=== PATIENT | female | born 1955 | race Caucasian/White ===

== ENCOUNTER → 2021-05-12 16:42 | Outpatient (CLI) | payer OTHER, SELFPAY ==
--- NOTE | 2021-05-12 16:46 | DI.RAD.S_ITS ---
PROCEDURE: XR HIP W PEL IF DONE LT 2V INDICATIONS: chronic left hip pain TECHNIQUE: AP pelvis with lateral view(s) of the left hip(s). COMPARISON: None. FINDINGS: Bones: No fractures or dislocations. Pelvic ring appears intact. No suspicious bony lesions. Mild joint narrowing with periarticular osteophyte formation. Degenerative disc and facet disease involves the inferior lumbar spine. Soft tissues: The visualized bowel gas pattern is normal. No suspicious soft tissue calcifications. IMPRESSION: Mild symmetric hip joint degeneration. Dictated by: Ronnie Herrera RR Interpreted: Robert Sandoval MD on 05/12/2021 at 17:03 Transcribed by: AGUSTÍN on 05/12/2021 at 17:03 Approved by: Robert Sandoval M.D. on 05/12/2021 at 17:14
== END ==
PROVIDERS: Referring Provider Family Medicine; Visit Provider Family Medicine
DX: M25.552 Pain in left hip (principal); M16.12 Unilateral primary osteoarthritis, left hip; G89.29 Other chronic pain
CPT/HCPCS: 73502

== ENCOUNTER → 2022-08-06 11:34 | Outpatient (CLI) | payer OTHER, SELFPAY ==
[2022-08-06 12:59] LABS: Add Manual Diff / Slide Review NO; Basophils Absolute Auto 0 /uL (0-100); Basophils Percent Auto 0.6 % (0-2); Eosinophils Absolute Auto 200 /uL (0-450); Eosinophils Percent Auto 4.7 % (2-4); Hematocrit 32.3 % (36-46); Hemoglobin 11.2 g/dL (12.0-16.0); Lymphocytes Absolute Auto 1500 /uL (1100-4500); Lymphocytes Percent Auto 33.8 % (25-40); Mean Corpuscular HGB Conc 34.6 % (30-36); Mean Corpuscular Hemoglobin 33.9 PG (26-34); Mean Corpuscular Volume 97.8 fL (80-100); Monocytes Absolute Auto 400 /uL (0-900); Monocytes Percent Auto 9.9 % (3-14); Neutrophils Absolute Auto 2200 /uL (1500-7000); Platelet Count 256 X10^3/uL (150-400); Red Blood Cell Count 3.31 X10^6/uL (4.0-5.2); Red Cell Distribution Width 12.4 % (11.6-14.8); White Blood Cell Count 4.3 X10^3/uL (4.5-11.0)
[2022-08-06 16:58] LABS: Alanine Aminotransferase 15 IU/L (<35); Albumin 3.5 g/dL (3.5-5.0); Albumin Globulin Ratio 0.5 (1.0-2.8); Alkaline Phosphatase 55 U/L (38-126); Aspartate Aminotransferase 15 IU/L (14-36); BUN Creatinine Ratio 20.8 (6-22); Bilirubin Total 0.2 mg/dL (0.2-1.3); Blood Urea Nitrogen 15 mg/dL (7-17); Calcium 8.3 mg/dL (8.4-10.2); Carbon Dioxide 27 mmol/L (22-32); Chloride 104 mmol/L (98-107); Cholesterol 120 mg/dL (140-199); Estimated Glomerular Filt Rate > 60 mL/min (>60); Globulin 6.4 g/dL (1.7-4.1); Glucose 100 mg/dL (80-110); HDL Cholesterol 37 mg/dL (40-60); HEMOLYSIS < 15 (0-50); LDL Cholesterol Calculated 69 mg/dL (<100); Potassium 4.2 mmol/L (3.4-5.1); Sodium 143 mmol/L (137-145); Total Protein 9.9 g/dL (6.3-8.2); Triglycerides 72 mg/dL (35-150)
== END ==
PROVIDERS: PCP Family Medicine; Referring Provider Family Medicine; Visit Provider Family Medicine
DX: R03.0 Elevated blood-pressure reading, without diagnosis of hypertension (principal); Z13.1 Encounter for screening for diabetes mellitus
CPT/HCPCS: 36415; 80053; 80061; 85025

== ENCOUNTER → 2023-01-19 07:57 | Outpatient (CLI) | payer OTHER, SELFPAY ==
[2023-01-19 08:38] LABS: Add Manual Diff / Slide Review NO; Basophils Absolute Auto 0 /uL (0-100); Basophils Percent Auto 0.5 % (0-2); Eosinophils Absolute Auto 300 /uL (0-450); Eosinophils Percent Auto 7.6 % (2-4); Hematocrit 30.7 % (36-46); Hemoglobin 10.7 g/dL (12.0-16.0); Lymphocytes Absolute Auto 1300 /uL (1100-4500); Lymphocytes Percent Auto 30.7 % (25-40); Mean Corpuscular HGB Conc 34.9 % (30-36); Mean Corpuscular Volume 97.2 fL (80-100); Monocytes Absolute Auto 200 /uL (0-900); Neutrophils Absolute Auto 2300 /uL (1500-7000); Neutrophils Percent Auto 56.2 % (50-75); Platelet Count 223 X10^3/uL (150-400); Red Blood Cell Count 3.15 X10^6/uL (4.0-5.2); White Blood Cell Count 4.2 X10^3/uL (4.5-11.0)
[2023-01-19 09:07] LABS: Alanine Aminotransferase 16 IU/L (<35); Albumin 3.7 g/dL (3.5-5.0); Albumin Globulin Ratio 0.5 (1.0-2.8); Alkaline Phosphatase 41 U/L (38-126); Aspartate Aminotransferase 14 IU/L (14-36); BUN Creatinine Ratio 32.8 (6-22); Bilirubin Total 0.5 mg/dL (0.2-1.3); Blood Urea Nitrogen 21 mg/dL (7-17); Calcium 8.7 mg/dL (8.4-10.2); Carbon Dioxide 27 mmol/L (22-32); Chloride 102 mmol/L (98-107); Estimated Glomerular Filt Rate > 60 mL/min (>60); Globulin 6.8 g/dL (1.7-4.1); Glucose 95 mg/dL (80-110); HEMOLYSIS < 15 (0-50); Potassium 4.5 mmol/L (3.4-5.1); Sodium 139 mmol/L (137-145); Total Protein 10.5 g/dL (6.3-8.2)
[2023-01-22 17:39] LABS: Albumin 3.9 g/dL (2.9-4.4); Alpha-1-Globulin 0.2 g/dL (0.0-0.4); Alpha-2-Globulin 0.6 g/dL (0.4-1.0); Gamma Globulin 0.3 g/dL (0.4-1.8); Globulin Total 6.4 g/dL (2.2-3.9); Protein, Total 10.3 g/dL (6.0-8.5)
== END ==
PROVIDERS: PCP Family Medicine; Referring Provider Family Medicine; Visit Provider Family Medicine
DX: D64.9 Anemia, unspecified (principal); F41.9 Anxiety disorder, unspecified; R03.0 Elevated blood-pressure reading, without diagnosis of hypertension; R77.9 Abnormality of plasma protein, unspecified
CPT/HCPCS: 36415; 80053; 84155; 84165; 85025

== ENCOUNTER → 2023-01-31 15:40 | Outpatient (CLI) | payer OTHER, SELFPAY ==
--- NOTE | 2023-01-31 15:41 | DI.RAD.S_ITS ---
PROCEDURE: XR BONE SURVEY INDICATIONS: multiple myeoloma TECHNIQUE: Multiple views obtained of various bony structures as described below. COMPARISON: None. FINDINGS: Skull (lateral): No suspicious bony lesions. No fractures. Thoracic spine (AP, lateral): No suspicious bony lesions. No acute vertebral body compression fractures. Multilevel degenerative change. Lumbar spine (AP, lateral): No suspicious bony lesions. No acute vertebral body compression fractures. Multilevel degenerative change. Pelvis (AP): No suspicious bony lesions. No fractures. Overlying soft tissues appear unremarkable. Mild symmetric hip joint degeneration Right and left humeri (AP): No suspicious bony lesions. No fractures. Overlying soft tissues appear unremarkable. Mild degenerative change. Right and left femurs (AP): No suspicious bony lesions. No fractures. Overlying soft tissues appear unremarkable. Mild degenerative change. IMPRESSION: No definitive lucent bony lesions or other suspicious bony abnormalities. Dictated by: Ronnie Herrera [facility] Interpreted: Roya Blankenship MD on 02/01/2023 at 14:55 Transcribed by: JONY on 02/01/2023 at 14:57 Approved by: Roya Blankenship M.D. on 02/01/2023 at 16:37
== END ==
PROVIDERS: PCP Family Medicine; Referring Provider Internal Medicine Hematology & Oncology; Visit Provider Internal Medicine Hematology & Oncology
DX: C90.00 Multiple myeloma not having achieved remission (principal)
CPT/HCPCS: 77075

== ENCOUNTER 2023-02-14 06:54 | Day surgery (SDC) | payer OTHER, SELFPAY ==
[2023-02-14] MEDS: LACTATED RINGERS 1,000 ML 100 ML IV (07:30)
[2023-02-14 07:57] VITALS: BP 139/78; PULSE 78; RESP 16; TEMP 36.7; O2SAT 100; BMI 26.6
[2023-02-14 07:59] LABS: Add Manual Diff / Slide Review NO; Basophils Absolute Auto 0 /uL (0-100); Basophils Percent Auto 0.6 % (0-2); Eosinophils Absolute Auto 400 /uL (0-450); Eosinophils Percent Auto 9.9 % (2-4); Hematocrit 32.1 % (36-46); Hemoglobin 10.9 g/dL (12.0-16.0); Lymphocytes Absolute Auto 1600 /uL (1100-4500); Mean Corpuscular HGB Conc 33.9 % (30-36); Mean Corpuscular Hemoglobin 33.6 PG (26-34); Mean Corpuscular Volume 99.4 fL (80-100); Monocytes Absolute Auto 200 /uL (0-900); Monocytes Percent Auto 5.6 % (3-14); Neutrophils Absolute Auto 1500 /uL (1500-7000); Neutrophils Percent Auto 40.9 % (50-75); Platelet Count 221 X10^3/uL (150-400); Red Blood Cell Count 3.23 X10^6/uL (4.0-5.2); Red Cell Distribution Width 13.3 % (11.6-14.8); White Blood Cell Count 3.7 X10^3/uL (4.5-11.0)
[2023-02-14 08:18] VITALS: BP 127/51; PULSE 59; RESP 12; TEMP 36.4; O2SAT 100
[2023-02-14 08:23] VITALS: BP 134/57; PULSE 57; RESP 10; O2SAT 100
[2023-02-14 08:28] VITALS: BP 132/53; PULSE 57; RESP 10; O2SAT 100
--- NOTE | 2023-02-14 08:29 | SUR.PHASEI ---
Received to PACU after MAC. Pt awake and alert. Report from PORTER Hopkins.
[2023-02-14 08:34] VITALS: BP 129/55; PULSE 57; RESP 12; TEMP 36.2; O2SAT 99
--- NOTE | 2023-02-14 08:34 | SUR.PHASEI ---
Hearing aides in place.
[2023-02-14 08:37] VITALS: BP 139/51; PULSE 57; RESP 12; TEMP 36.2; O2SAT 98
== END 2023-02-14 08:51 | disposition home or self-care (01) ==
PROVIDERS: PCP Family Medicine; Referring Provider Internal Medicine Hematology & Oncology; Visit Provider Internal Medicine Hematology & Oncology
DX: C90.00 Multiple myeloma not having achieved remission (principal)
CPT/HCPCS: 36415; 38222; 85025; 99000; J2704

== ENCOUNTER → 2023-03-07 16:33 | Outpatient (CLI) | payer OTHER, SELFPAY ==
--- NOTE | 2023-03-07 16:34 | DI.MRI.S_ITS ---
PROCEDURE: MR BONE MARROW INDICATIONS: multiple myeloma TECHNIQUE: Noncontrast sagittal T1 spin echo and STIR through the spine; coronal T1 spin echo and STIR through the bony thorax, coronal T1 spin echo and STIR through the bony pelvis and femurs. COMPARISON: [facility], CR, XR BONE SURVEY, 01/31/2023, 15:40. FINDINGS: Image quality: Excellent. Spine: Grade 1 anterolisthesis of T12 on L1. No vertebral body compression fractures. Mild cellular marrow throughout the visualized osseous structures, which remains hyperintense to muscle on T1-weighted images without a definite focal marrow replacing mass. Multilevel degenerative changes in the cervical and lumbar spine without high-grade spinal canal narrowing. The visualized spinal cord demonstrates normal intramedullary signal. The conus is in expected position. No epidural or paravertebral soft tissue masses. Pelvis and hips: Mild cellular marrow throughout the visualized osseous structures, which remains hyperintense to muscle on T1-weighted images without a definite focal marrow replacing mass. No pelvic ring or sacral pathologic or insufficiency fractures. Physiologic amounts of hip joint fluid are present. No joint degeneration or soft tissue bursal fluid collections. Soft tissues: No free pelvic fluid. No pathologic pelvic or inguinal adenopathy. Visualized bowel loops appear normal in caliber. Limited images through the genitourinary tract demonstrate no abnormalities. The muscles demonstrate normal overall bulk and internal signal. Bilateral mucous retention cysts in the maxillary sinuses. Nonspecific subcentimeter [id number] thyroid nodule does not require dedicated imaging follow-up. IMPRESSION: Mild cellular marrow is seen throughout the visualized osseous structures, which remains hyperintense to skeletal muscle. Findings are nonspecific and may be related to red marrow reconversion, especially in the setting of anemia. No focal marrow replacing mass. Approved by: Ho Gutierrez M.D. on 03/08/2023 at 12:29
== END ==
PROVIDERS: PCP Family Medicine; Referring Provider Internal Medicine Hematology & Oncology; Visit Provider Internal Medicine Hematology & Oncology
DX: C90.00 Multiple myeloma not having achieved remission (principal)
CPT/HCPCS: 77084

== ENCOUNTER → 2024-02-18 14:34 | Outpatient (CLI) | payer OTHER, MEDICARE, SELFPAY ==
--- NOTE | 2024-02-18 14:36 | DI.RAD.S_ITS ---
PROCEDURE: XR ANKLE LT MIN 3V INDICATIONS: Left ankle swelling TECHNIQUE: 3 views of the ankle were acquired. COMPARISON: None. FINDINGS: Bones: No fractures or dislocations. Chronic appearing fracture fragment at the tip of the medial malleolus. Ankle mortise is normally aligned. No suspicious bony lesions. Soft tissues: No tibiotalar joint effusion. Achilles tendon appears normal. IMPRESSION: No acute bony abnormality or significant effusion. Dictated by: Paulino Wagoner M.D. on 02/18/2024 at 15:30 Approved by: Paulino Wagoner M.D. on 02/18/2024 at 15:31
--- NOTE | 2024-02-18 14:36 | DI.RAD.S_ITS ---
PROCEDURE: XR SHOULDER RT MIN 2V INDICATIONS: Chronic right shoulder pain TECHNIQUE: 3 views of the shoulder were acquired. COMPARISON: None. FINDINGS: Bones: No fractures or dislocations. Moderate acromioclavicular and mild glenohumeral joint degeneration. No suspicious bony lesions. Visualized ribs appear intact. Soft tissues: No suspicious soft tissue calcifications. IMPRESSION: No acute osseous abnormalities. Moderate acromioclavicular and mild glenohumeral joint degeneration. Dictated by: Paulino Wagoner M.D. on 02/18/2024 at 15:29 Approved by: Paulino Wagoner M.D. on 02/18/2024 at 15:30
== END ==
PROVIDERS: PCP Family Medicine; Referring Provider Family Medicine; Visit Provider Family Medicine
DX: M19.011 Primary osteoarthritis, right shoulder (principal); M25.511 Pain in right shoulder; M25.472 Effusion, left ankle; G89.29 Other chronic pain
CPT/HCPCS: 73030; 73610

== ENCOUNTER → 2024-04-09 15:21 | Outpatient (CLI) | payer OTHER, MEDICARE, SELFPAY ==
--- NOTE | 2024-04-09 15:23 | DI.RAD.S_ITS ---
PROCEDURE: XR HIP W PEL IF DONE LT 2V INDICATIONS: hip pain 1.5 weeks TECHNIQUE: AP pelvis with lateral view(s) of the left hip(s). COMPARISON: [facility], , XR HIP W PEL IF DONE LT 2V, 05/12/2021, 16:48. FINDINGS: Bones: No fractures or dislocations. Pelvic ring appears intact. No suspicious bony lesions. Soft tissues: The visualized bowel gas pattern is normal. No suspicious soft tissue calcifications. IMPRESSION: No acute bony abnormality. Dictated by: Eleazar Carreno M.D. on 04/09/2024 at 16:40 Approved by: Robert Sandoval M.D. on 04/20/2024 at 16:46
== END ==
PROVIDERS: PCP Family Medicine; Referring Provider Physician Assistant; Visit Provider Physician Assistant
DX: C90.00 Multiple myeloma not having achieved remission (principal); M25.552 Pain in left hip
CPT/HCPCS: 73502

== ENCOUNTER → 2024-05-29 08:45 | Outpatient (CLI) | payer OTHER, MEDICARE, SELFPAY ==
--- NOTE | 2024-05-29 | DI.MRI.S_ITS ---
PROCEDURE: MR HIP LT WO CON INDICATIONS: LEFT HIP PAIN TECHNIQUE: Noncontrast coronal T1 spin echo and STIR through the bony pelvis. Coronal and axial T2 fast spin echo with fat saturation, sagittal T1 spin echo, and oblique axial T2 fast spin echo with fat saturation through the hip. COMPARISON: [facility], CR, XR HIP W PEL IF DONE LT 2V, 04/09/2024, 15:24. FINDINGS: Image quality: Excellent. Bones and joints: Fibrovascular end plate change at the lower lumbar spine. The sacrum is intact. The right and the left sacroiliac joints are unremarkable. No acute fracture or dislocation of either hip. Mild subchondral cystic changes at the anterior head and neck junction of the left femur, favoring degenerative. Tendons and ligaments: The left iliopsoas, and adductor tendon are unremarkable. The left hamstring tendon is unremarkable. Mild peritendinitis of the left gluteal minimus with low-grade tear. Partial-thickness tear of the left gluteal medius, at the greater trochanteric insertion. Trace greater trochanteric bursitis. Mild peritendinitis of the right gluteal medius, incompletely evaluated. Labrum and cartilage: Superior labral tear. No focal chondral defect. Soft tissues: Status post hysterectomy. IMPRESSION: 1. Low-grade tear of the left gluteal minimus, and partial-thickness tear of the left gluteal medius, at the greater trochanteric insertion. 2. Mild right gluteus medius peritendinitis. Dictated by: Lizzie Cruz M.D. on 05/29/2024 at 10:45 Approved by: Lizzie Cruz M.D. on 05/29/2024 at 10:52
== END ==
LOC: MRI 08:46
PROVIDERS: PCP Family Medicine; Referring Provider Orthopaedic Surgery; Visit Provider Orthopaedic Surgery
DX: S76.012A Strain of muscle, fascia and tendon of left hip, initial encounter (principal); M76.02 Gluteal tendinitis, left hip; M25.552 Pain in left hip
CPT/HCPCS: 73721

== ENCOUNTER → 2024-05-29 08:47 | Outpatient (CLI) | payer OTHER, MEDICARE, SELFPAY ==
--- NOTE | 2024-05-29 | DI.MG.S_ITS ---
BILATERAL DIGITAL SCREENING MAMMOGRAM 3D/2D WITH CAD: 05/29/2024 CLINICAL: Routine screening. Baseline exam. No prior exams were available for comparison. There are scattered areas of fibroglandular density (category b / 25%-50% glandular tissue). Current study was also evaluated with a Computer Aided Detection (CAD) system. No significant masses, calcifications, or other findings are seen in either breast. IMPRESSION: NEGATIVE There is no mammographic evidence of malignancy. A 1 year screening mammogram is recommended. Based on the Tyrer Cuzick model (a risk assessment model) the patient's lifetime risk is 4.2% and her 10 year risk is 2.2%. According to the ACR, ACS, and NCCN guidelines, an annual breast MRI exam along with mammogram is recommended if the patient's lifetime risk is 20% or greater. This exam was interpreted at Station ID: [id number]. NOTE: For mammograms, a report in lay terms will be sent to the patient. Approximately 15% of breast malignancies will not be visualized mammographically. In the management of a palpable breast mass, a negative mammogram must not discourage biopsy of a clinically suspicious lesion. Electronically Signed By: Giuliana Brennan M.D., Ph.D. deirdre/[email or web address]:05/29/2024 10:01:33 letter sent: Normal Exam ACR BI-RADS Category 1: Negative [id number]
== END ==
LOC: MAMMO 08:47
PROVIDERS: PCP Family Medicine; Referring Provider Family Medicine; Visit Provider Family Medicine
DX: Z12.31 Encounter for screening mammogram for malignant neoplasm of breast (principal)
CPT/HCPCS: 77063; 77067

== ENCOUNTER 2024-07-01 10:15 | Emergency (ER) | payer OTHER, MEDICARE, SELFPAY ==
[2024-07-01 10:16] VITALS: BP 123/73; PULSE 92; RESP 17; TEMP 36.9; O2SAT 93; BMI 29.5
--- NOTE | 2024-07-01 10:16 | ED.EXTPRO ---
HPI - Extremity Problem General Chief complaint: Back Pain/Injury Stated complaint: muscle spasm Time Seen by Provider: 07/01/24 10:16 History of Present Illness HPI Narrative: Patient is a 68-year-old female with a history of multiple myeloma and chronic left hip pain presents to the emergency department from home for evaluation left-sided low back pain. States that a few days ago she woke up coughing and noticed it is spasming to her low back. Onto the left side denies any saddle paresthesias denies any bowel or urinary incontinence or retention denies any numbness weakness tingling to the lower extremities able to stand bear weight ambulate unassisted. She states that it gets worse whenever she coughs. States that she has been trying to ride it out due to persistent symptoms decided come into the ED for further evaluation treatment. Related Data Home Medications Medication Instructions Recorded Confirmed lorazepam 0.5 mg tablet 0.5 mg PO DAILY PRN Anxiety 01/31/23 04/09/24 dexamethasone 20 mg tablet 20 mg PO .once a week 12/06/23 04/09/24 lenalidomide 15 mg capsule 15 mg PO DAILY 12/06/23 04/09/24 (Revlimid) valacyclovir 500 mg tablet 500 mg PO BID 12/06/23 04/09/24 (Valtrex) daratumumab [Darzalex] IV 02/17/24 04/09/24 zoledronic acid [Zometa] IV 02/17/24 04/09/24 Previous Rx's Medication Instructions Recorded diazepam 5 mg tablet (Valium) 5 mg PO BEDTIME PRN muscle spasm 5 07/01/24 days #5 tabs naproxen 500 mg tablet (Naprosyn) 500 mg PO BID PRN pain 7 days #14 07/01/24 tabs prednisone 20 mg tablet 40 mg (2 x 20 mg) PO DAILY 5 days 07/01/24 #10 tabs Allergies Allergy/AdvReac Type Severity Reaction Status Date / Time No Known Drug Allergies Allergy Verified 07/01/24 10:21 Review of Systems Review of Systems Narrative: General: Denies fever, chills, weight loss HEENT: Denies headache, eye drainage, eye irritation, head trauma, sore throat, voice change Cardiovascular: Denies any chest pain, palpitations, shortness of breath, tachycardia Respiratory: Denies any shortness of breath, cough, wheeze, stridor GI/: Denies any abdominal pain, nausea, vomiting, diarrhea, bright red blood per rectum, melanotic stools, urinary frequency, urinary retention, dysuria, hematuria MSK: Denies any joint pain, positive left-sided low back pain Skin: Denies any rashes, lesions, discoloration Neuro: Denies any headache, lightheadedness, dizziness, fainting, weakness Psych: Denies SI/HI Patient History Medical History (Updated 07/01/24 @ 12:21 by Ten Naik DO) Multiple myeloma Somatic dysfunction of lower extremity Acute pain of right knee Stiffness of right knee Chronic left hip pain Cataracts, both eyes Hearing loss of both ears Anxiety Elevated blood-pressure reading without diagnosis of hypertension Surgical History Anesthesia History of toe surgery Status post cholecystectomy Status post knee surgery Status post hysterectomy (~1985) History of tonsillectomy (~1965) Family History Brother Age: 68 Heart disease Diabetes mellitus Brother Age: 60 Diabetes mellitus Father Age: 92 Diabetes mellitus Essential hypertension High cholesterol Dementia Prostate cancer Mother Cancer Social History household members: spouse Smoking Status: Former smoker alcohol intake: current substance use type: does not use Smoking Status: Former smoker Substance Use Type: marijuana Exam Narrative Exam Narrative: General: Cooperative, comfortable, well-developed, not in acute distress HEENT: Normocephalic, atraumatic, PERRLA, normal sclera, eyelids normal, Neck: Active full range of motion, atraumatic Chest: Normal to inspection, negative crepitus, no overlying erythema ecchymosis Respiratory: Normal respiratory effort, not in acute respiratory distress, clear to auscultation bilaterally negative cough, wheeze, tachypnea, rhonchi, rales Cardiology: Regular rate rhythm negative gallop, murmur, rubs GI/: Normal to inspection, soft, nonrigid, no tenderness to palpation, exam deferred MSK: Full range of active range of motion of all 4 extremities, atraumatic, there is no tenderness to palpation of the thoracic and lumbar spine, there is tenderness to palpation over the paraspinal muscles on the left, no overlying erythema ecchymosis or lesions. She is able to stand bear weight ambulate unassisted here in the emergency department. Skin: No rashes lesions noted Neuro: Alert awake oriented x3, moves all 4 extremities spontaneously, cranial nerves intact, able to answer all questions appropriately follows commands appropriately Psych: Cooperative, negative suicidal or homicidal ideations Initial Vital Signs Initial Vital Signs: Vital Signs Temperature 98.4 F 07/01/24 10:16 Pulse Rate 92 H 07/01/24 10:16 Respiratory Rate 17 07/01/24 10:16 Blood Pressure 123/73 07/01/24 10:16 Pulse Oximetry 93 07/01/24 10:16 Oxygen Delivery Method Room Air 07/01/24 10:16 Course Orders Ordered: ED Orders 07/01/24 10:20 XR lumbar spine 2-3V Stat Discontinued Medications Diazepam (Diazepam 2 Mg Tablet) 2 mg PO NOW ONE Stop: 07/01/24 10:23 Last Admin: 07/01/24 10:29 Dose: 2 mg Documented By: ARNALDO Ketorolac Tromethamine (Ketorolac 30 Mg/Ml Vial) 15 mg IM NOW ONE Stop: 07/01/24 10:22 Last Admin: 07/01/24 10:28 Dose: 15 mg Documented By: ARNALDO Prednisone (Prednisone 20 Mg Tablet) 60 mg PO NOW ONE Stop: 07/01/24 10:22 Last Admin: 07/01/24 10:29 Dose: 60 mg Documented By: ARNALDO Vital Signs Vital signs: Vital Signs - 8 hr 07/01/24 10:16 07/01/24 10:18 07/01/24 10:19 Temperature 98.4 F Pulse Rate 92 H 90 Respiratory Rate 17 Blood Pressure 123/73 Pulse Oximetry 93 97 92 Oxygen Delivery Method Room Air 07/01/24 10:19 Temperature Pulse Rate Respiratory Rate Blood Pressure 123/73 Pulse Oximetry Oxygen Delivery Method MDM - Extremity (Nontraumatic) Imaging Data X-ray lumbar: Radiologist's Impression: [address] [address] XRay Report Signed Patient: Marly Lara MR#: [id number] : 1955 Acct:[id number] Age/Sex: 68 / F Date of Service: 07/01/24 Loc: ED Accession Number: [id number] Procedure: XR lumbar spine 2-3V Ordering Provider: Ten Naik D.O. PROCEDURE: XR LUMBAR SPINE 2-3V INDICATIONS: low back pain TECHNIQUE: 3 views of the lumbar spine were acquired. COMPARISON: None. FINDINGS: Bones: 5 [id number] vertebrae are present. Moderate levo scoliotic curvature centered at L2. Multilevel degenerative disc space loss and facet arthropathy. Suspect lower lumbar canal stenosis. No vertebral body compression fractures. No suspicious bony lesions. Soft tissues: Overlying bowel gas pattern is normal. Extensive aortoiliac calcifications. The pattern of common iliac calcifications suggest probable bilateral hemodynamically significant common iliac artery stenosis. There is also suggestion of a probable hemodynamically significant distal aortic stenosis. IMPRESSION: 1. Moderate levo scoliotic curvature. 2. Multilevel degenerative disc disease and facet arthropathy. Suspect canal stenosis. 3. No acute bony abnormality. 4. Suspect probable hemodynamically significant distal aortic and bilateral common iliac artery stenotic disease. [facility] Narrative Medical decision making narrative: Patient is a 68-year-old female history of multiple myeloma comes in complaining of left paraspinal muscle pain spasming after waking up in the past few days. She denies any cauda equina symptoms. Physical exam is consistent with a muscle spasm with tenderness to palpation and reproducible symptoms to the left, there is no overlying erythema ecchymosis or abnormalities on the skin. She is able to stand bear weight ambulate unassisted. After administration medication here patient with significant improvement of pain. X-ray without any acute findings, she was instructed follow up with Orthopedic surgery in outpatient setting as well as PCP and agrees to being discharged home with outpatient follow up Discharge Plan Departure Patient Disposition: Home Clinical Impression: Acute lumbar myofascial strain Activity Restrictions/Additional Instructions: Please follow up with the primary care Please read the discharge instructions sheet carefully and bring all papers to all doctor follow-up visits, as it may contain information that your doctor may want to see. Disease processes change and evolve, if your symptoms worsen or if you develop any new symptoms that are concerning to you please return for evaluation. Your evaluation today does not show any evidence of any life-threatening/serious illnesses requiring admission to the hospital or surgery. Please follow-up with your doctor for re-evaluation in approximately 1 day. Seek immediate medical attention for any worrisome symptoms. Prescriptions: New prednisone 20 mg tablet 40 mg PO DAILY 5 Days Qty: 10 0RF diazepam [Valium] 5 mg tablet 5 mg PO BEDTIME PRN (Reason: muscle spasm) 5 Days Qty: 5 0RF naproxen [Naprosyn] 500 mg tablet 500 mg PO BID PRN (Reason: pain) 7 Days Qty: 14 0RF No Action lenalidomide [Revlimid] 15 mg capsule 15 mg PO DAILY Rx Instructions: swallow whole with glass of water; do not open, crush, chew , break, or dissolve dexamethasone 20 mg tablet 20 mg PO .once a week valacyclovir [Valtrex] 500 mg tablet 500 mg PO BID zoledronic acid [Zometa] IV daratumumab [Darzalex] IV lorazepam 0.5 mg Tablet 0.5 mg PO DAILY PRN (Reason: Anxiety) Referrals: Percy Gagnon MD [Primary Care Provider] - Stand Alone Forms: Patient Portal/API
[2024-07-01 10:18] VITALS: O2SAT 97
[2024-07-01 10:19] VITALS: BP 123/73; PULSE 90; O2SAT 92
--- NOTE | 2024-07-01 10:20 | DI.RAD.S_ITS ---
PROCEDURE: XR LUMBAR SPINE 2-3V INDICATIONS: low back pain TECHNIQUE: 3 views of the lumbar spine were acquired. COMPARISON: None. FINDINGS: Bones: 5 [id number] vertebrae are present. Moderate levo scoliotic curvature centered at L2. Multilevel degenerative disc space loss and facet arthropathy. Suspect lower lumbar canal stenosis. No vertebral body compression fractures. No suspicious bony lesions. Soft tissues: Overlying bowel gas pattern is normal. Extensive aortoiliac calcifications. The pattern of common iliac calcifications suggest probable bilateral hemodynamically significant common iliac artery stenosis. There is also suggestion of a probable hemodynamically significant distal aortic stenosis. IMPRESSION: 1. Moderate levo scoliotic curvature. 2. Multilevel degenerative disc disease and facet arthropathy. Suspect canal stenosis. 3. No acute bony abnormality. 4. Suspect probable hemodynamically significant distal aortic and bilateral common iliac artery stenotic disease. Dictated by: Christiano Wade M.D. on 07/01/2024 at 12:01 Approved by: Christiano Wade M.D. on 07/01/2024 at 12:03
[2024-07-01] MEDS: KETOROLAC 30 MG/ML VIAL 15 MG IM (10:28)
[2024-07-01] MEDS: predniSONE 20 MG TABLET 60 MG PO (10:29)
[2024-07-01] MEDS: diazePAM 2 MG TABLET PO (10:29)
--- NOTE | 2024-07-01 12:39 | PC.NURSE ---
Patient states that she is unable to take naproxen due to multiple myloma. She asked this RN if provider wanted her to take Tylenol instead. This RN asked provider and provider confirmed yes patient could take Tylenol as written on the bottle. This RN took the prescription written for the naproxen and it is shredded.
[2024-07-01 12:43] VITALS: BP 121/67; PULSE 77; RESP 18; TEMP 36.7; O2SAT 99
== END 2024-07-01 12:40 | disposition home or self-care (01) ==
PROVIDERS: Emergency Provider Student in an Organized Health Care Education/Training Program; PCP Family Medicine
DX: S39.012A Strain of muscle, fascia and tendon of lower back, initial encounter (principal); M62.830 Muscle spasm of back
CPT/HCPCS: 72100; 96372; 99283; J1885

== ENCOUNTER → 2024-07-14 10:55 | Outpatient (CLI) | payer OTHER, SELFPAY ==
--- NOTE | 2024-07-14 10:58 | DI.US.S_ITS ---
PROCEDURE: US PERIPH VENOUS LOW EXTREM RT INDICATIONS: RIGHT LEG PAIN AND SWELLING TECHNIQUE: Real-time imaging, as well as color and pulse Doppler interrogation, were performed of the lower extremity deep veins from the inguinal ligament to the popliteal fossa, with documentation of the visualized calf veins. COMPARISON: None. FINDINGS: Right lower extremity deep venous thrombosis can be seen, with thrombus seen within the common femoral vein, the femoral vein, and the popliteal vein. IMPRESSION: Extensive right lower extremity deep venous thrombosis can be seen. Note: Concordant preliminary findings given by the client care specialist upon the completion of the examination to the ordering office. Dictated by: Caleb Hernandez M.D. on 07/14/2024 at 12:27 Approved by: Caleb Hernandez M.D. on 07/14/2024 at 12:27
== END ==
PROVIDERS: PCP Family Medicine; Referring Provider Family Medicine; Visit Provider Family Medicine
DX: C90.00 Multiple myeloma not having achieved remission (principal); I82.431 Acute embolism and thrombosis of right popliteal vein; I82.411 Acute embolism and thrombosis of right femoral vein; M79.89 Other specified soft tissue disorders; M79.661 Pain in right lower leg
CPT/HCPCS: 93971

== ENCOUNTER 2024-10-27 14:25 | Outpatient (RCR) | payer OTHER, SELFPAY ==
--- NOTE | 2024-10-27 18:08 | PT.OIE ---
Current Diagnoses Trochanteric bursitis, left hip (10/27/24) Past Medical History (Last Updated 01/24/23 @ 07:57 by Percy Gagnon MD) Acute pain of right knee Anxiety Cataracts, both eyes Chronic left hip pain Elevated blood-pressure reading without diagnosis of hypertension Hearing loss of both ears Multiple myeloma Somatic dysfunction of lower extremity Stiffness of right knee Past Surgical History (Last Reviewed 07/25/22 @ 08:35 by MIGUEL Santiago) Anesthesia History of toe surgery History of tonsillectomy (~1965) Status post cholecystectomy Status post hysterectomy (~1985) Status post knee surgery Visit Care Team Role Provider Type Percy Gagnon MD Family Provider Physician Primary Care Provider Specialty: Family Practice Address: [address] [place] [address], [id number] Email: [email or web address] Wharton MD Attending Provider Physician Referring Provider Specialty: Orthopedics Orthopedic Surgery Address: [address] [place] [address], [address] Email: [email or web address] Physical Therapy Initial Evaluation PT-OP-A Visit Information Start: 10/21/24 17:39 Freq: Status: Active Protocol: Document 10/27/24 14:14 [facility] (Rec: 10/27/24 15:22 [facility] [id number]) Out-Patient Physical Therapy Visit Information Visit Information Visit Type Initial Evaluation Visit Start Time 14:31 Visit Number 1 Number of PROFESSIONAL BASS FISHERMAN Visits 0 Precautions Precautions multiple mylenoma -very gentle -no more than grade 1-2 mobs at hip, no lumbar jt mobs PT-OP-B Current Condition Start: 10/21/24 17:39 Freq: Status: Active Protocol: Document 10/27/24 14:14 [facility] (Rec: 10/27/24 15:22 [facility] [id number]) Current Condition History of Current Condition Current Complaints L lat hip pain History of Current Condition Pt was told she has bursitis and arthritis by orthopedic. No injury but just gradual onset. She had a flare up where she couldn't WB on LLE. THats why she went to ortho. FInished chemo for multiple myeloma and is on meds for that. She has been dx for 2 years. Has not had treatment for the hip. L ankle is still messd up but still has a cyst and did do PT for it. Does have R shoulder pain w/OA but avoiding TSA at this time and is just careful. Last flare up was Nov. Prior Treatments and Tests MRI 05/29/23-IMPRESSION: 1. Low-grade tear of the left gluteal minimus, and partial- thickness tear of the left gluteal medius, at the greater trochanteric insertion. 2. Mild right gluteus medius peritendinitis. Xray 04/08-IMPRESSION: No acute bony abnormality. lumbar xray-IMPRESSION: 1. Moderate levo scoliotic curvature. 2. Multilevel degenerative disc disease and facet arthropathy. Suspect canal stenosis. 3. No acute bony abnormality. 4. Suspect probable hemodynamically significant distal aortic and bilateral common iliac artery stenotic disease. Treatment Goals Patient/Caregiver Goals Be able to walk up the stairs normally consistantly, move out of positions w/less pain, be able to get figure 4 to cut toe nails PT-OP-C Subjective Start: 10/21/24 17:39 Freq: Status: Active Protocol: Document 10/27/24 14:14 [facility] (Rec: 10/27/24 15:22 [facility] [id number]) OP-PT Pain Assessment Location L hip Pain Location Details lat Description With Movement Frequency Intermittent Pain Aggravating Factors Stair Climbing Other Pain Aggravating Factors figure 4 position, laying on L side, sit to stand ( especially if sit long) Other Pain Alleviating Factors get moving or stop doing painful activity PT-OP-D Balance Start: 10/21/24 17:39 Freq: Status: Active Protocol: Document 10/27/24 14:14 [facility] (Rec: 10/27/24 15:22 [facility] [id number]) Balance Tests Single Limb Standing Single Limb- Right 4 sec Single Limb- Left 1 sec PT-OP-G Mobility & Gait Start: 10/21/24 17:39 Freq: Status: Active Protocol: Document 10/27/24 14:14 [facility] (Rec: 10/27/24 15:22 [facility] [id number]) OP Gait Assessment Comments Gait Comments dec push off, dec stance time LLE PT-OP-J Posture/Palpation/Skin Start: 10/21/24 17:39 Freq: Status: Active Protocol: Document 10/27/24 14:14 [facility] (Rec: 10/27/24 15:22 [facility] [id number]) Posture Evaluation Dilia Postural Classification System Dilia Postural Classifications Posterior/Anterior Lumbar Protective Mechanism Left AP 0 Lumbar Protective Mechanism Right AP 2 Lumbar Protective Mechanism Left PA 0 Lumbar Protective Mechanism Right PA 0 Comments Posture Comments R pelvic shear, supination B feet, genu recurvatum, inc kyphosis PT-OP-L Special Tests Start: 10/21/24 17:39 Freq: Status: Active Protocol: Document 10/27/24 14:14 [facility] (Rec: 10/27/24 15:22 [facility] [id number]) Special Tests Lumbar Spine Special Tests Kayla Test Results positive SLR Test Results cramp feeling in L hip w/dec ROM Slump Test Results inc tension LLE but no pain PT-OP-M Strength Start: 10/21/24 17:39 Freq: Status: Active Protocol: Document 10/27/24 14:14 [facility] (Rec: 10/27/24 15:22 [facility] [id number]) Hip Strength Hip Manual Muscle Testing Right Flexion (L2) 4 Good Extension (S1) 3+ Fair+ Abduction 4+ Good+ External Rotation 4+ Good+ Internal Rotation 5 Normal Left Flexion (L2) 3+ Fair+ Extension (S1) 3 Fair Abduction 3- Fair- External Rotation 4 Good Internal Rotation 3 Fair Knee Strength Knee Manual Muscle Testing Right Flexion (S2) 5 Normal Extension (L3) 5 Normal Left Flexion (S2) 4+ Good+ Extension (L3) 4+ Good+ Comments pain flex Ankle/Foot Strength Ankle and Foot Manual Muscle Testing B Dorsiflexion (L4) 5 Normal Plantarflexion (S1) 5 Normal Comments PF tested seated PT-OP-Q Treatments Start: 10/21/24 17:39 Freq: Status: Active Protocol: Document 10/27/24 14:14 [facility] (Rec: 10/27/24 15:22 [facility] [id number]) Therapeutic Exercises Supine Exercises bridge Side bilateral Reps/Minutes 5 sec x8 Sidelying Exercises clamshells Side bilateral Reps/Minutes 15 L; 8 R Comments cues no rolling Standing Exercises squat Side bilateral Equipment Used bar Reps/Minutes 20 Comments max cues for hip hinge and knee ROM together sidesteps Side bilateral Equipment Used L1 at ankles Reps/Minutes 20ft [facility] Re-Education Treatment Balance Activities tandem Comments B stance PT-OP-T Assessment and Plan Start: 10/21/24 17:39 Freq: Status: Active Protocol: Document 10/27/24 14:14 [facility] (Rec: 10/27/24 15:22 [facility] [id number]) Physical Therapy Assessment Rehab Potential Rehabilitation Potential Good Evaluation Complexity Number of Personal Factors/Comorbidities 3 or More Number of Body Systems Impaired 4 or More Clinical Presentation at Evaluation Unstable Impairments Impairments Activity Tolerance,Balance, Functional Activities, Functional Mobility,Gait,Pain, Posture,ROM,Soft Tissue Mobility,Strength,Transfers Other Concerns Barriers to Rehabilitation high copay and deductible will limit visit limits Goals balance Short Term Goal (STG) Pt will be able to do SLS 5 sec B to show improved stability STG Duration 11/27 Warehouse Team Leader Goal (LTG) Pt will be able to do SLS 10 sec B to show improved stability LTG Duration 01/05 activity Short Term Goal (STG) Pt will be able to do figure 4 sit to clip toe nails without inc pain STG Duration 11/28 Warehouse Team Leader Goal (LTG) Pt will be able to do stairs and sit to stand after sitting inc time w/o inc hip pain. LTG Duration 12/28 strength Short Term Goal (STG) Pt will be indep w/HEP STG Duration 11/27 Warehouse Team Leader Goal (LTG) Pt will score at least 4+/5 on BLE MMT and at lest 2/5 on LPM to show improved stability to allow greater ease with activity LTG Duration 12/28 Assessment Summary Assessment Pt presents w/c/o L lat hip pain w/mild tearing noted of glute min and partial tear of glute med in MRI performed last fall w/o hx of incident. Pt has complicated hx including multiple mylenoma which makes her bones more fragile and will have to be gentle with treatment and may be complicating her pain. She also has hx of L ankle issue with present cyst potentially affecting her gait also. She has limited ROM in L hip that affects her ADLs along w/pain w/stairs. She also demonstrates dec balance. She would benefit from skilled PT to address her deficits but will be limited by her high deductible and copay. Physical Therapy Plan Frequency and Duration Frequency of Treatment 2x/Week Duration of treatment (weeks) 10 Plan of Care Start Date 10/27/24 Plan of Care End Date 01/05/25 Therapeutic Interventions Therapeutic Interventions Balance Training,Gait Training ,Home Exercise Program,Joint Mobilizations,Manual Therapy, Neuromuscular Re-education, Orthotic/Prosthetic Management ,Patient/Caregiver Education, Self-Care/Home Management,Soft Tissue Mobilization,Taping, Therapeutic Activities, Therapeutic Exercises Modalities Cold Pack/Ice Massage,Hot Packs Other Therapeutic Interventions very gentle joint mobilizations d/t multiple myeloma Next Visit Focus/Plan Next Note Type Treatment Note Next Visit Plan review HEP; gentle STM to hip and HS, grade 1 jt mobs to hip , stair training
--- NOTE | 2024-10-27 18:08 | PT.OPPOC ---
Addendum entered and electronically signed by Aditi Engel, PT 10/28/24 11:23: POC faxed Original Note: Physical, Occupational & Speech Therapy At [facility] Current Diagnoses Trochanteric bursitis, left hip (10/27/24) Visit Care Team Role Provider Type Percy Gagnon MD Family Provider Physician Primary Care Provider Specialty: Family Practice Address: [address] [place] [address], [id number] Email: [email or web address] Ivett Wharton MD Attending Provider Physician Referring Provider Specialty: Orthopedics Orthopedic Surgery Address: [address] [place] [address], [address] Email: [email or web address] Plan Of Care PT-OP-B Current Condition Start: 10/21/24 17:39 Freq: Status: Active Protocol: Document 10/27/24 14:14 [facility] (Rec: 10/27/24 15:22 [facility] [id number]) Current Condition History of Current Condition Current Complaints L lat hip pain History of Current Condition Pt was told she has bursitis and arthritis by orthopedic. No injury but just gradual onset. She had a flare up where she couldn't WB on LLE. THats why she went to ortho. FInished chemo for multiple myeloma and is on meds for that. She has been dx for 2 years. Has not had treatment for the hip. L ankle is still messd up but still has a cyst and did do PT for it. Does have R shoulder pain w/OA but avoiding TSA at this time and is just careful. Last flare up was Nov. Prior Treatments and Tests MRI 05/29/23-IMPRESSION: 1. Low-grade tear of the left gluteal minimus, and partial- thickness tear of the left gluteal medius, at the greater trochanteric insertion. 2. Mild right gluteus medius peritendinitis. Xray 04/08-IMPRESSION: No acute bony abnormality. lumbar xray-IMPRESSION: 1. Moderate levo scoliotic curvature. 2. Multilevel degenerative disc disease and facet arthropathy. Suspect canal stenosis. 3. No acute bony abnormality. 4. Suspect probable hemodynamically significant distal aortic and bilateral common iliac artery stenotic disease. Treatment Goals Patient/Caregiver Goals Be able to walk up the stairs normally consistantly, move out of positions w/less pain, be able to get figure 4 to cut toe nails PT-OP-T Assessment and Plan Start: 10/21/24 17:39 Freq: Status: Active Protocol: Document 10/27/24 14:14 [facility] (Rec: 10/27/24 15:22 [facility] [id number]) Physical Therapy Assessment Rehab Potential Rehabilitation Potential Good Evaluation Complexity Number of Personal Factors/Comorbidities 3 or More Number of Body Systems Impaired 4 or More Clinical Presentation at Evaluation Unstable Impairments Impairments Activity Tolerance,Balance, Functional Activities, Functional Mobility,Gait,Pain, Posture,ROM,Soft Tissue Mobility,Strength,Transfers Other Concerns Barriers to Rehabilitation high copay and deductible will limit visit limits Goals balance Short Term Goal (STG) Pt will be able to do SLS 5 sec B to show improved stability STG Duration 11/27 Prototype Machinist Goal (LTG) Pt will be able to do SLS 10 sec B to show improved stability LTG Duration 01/05 activity Short Term Goal (STG) Pt will be able to do figure 4 sit to clip toe nails without inc pain STG Duration 11/28 Prototype Machinist Goal (LTG) Pt will be able to do stairs and sit to stand after sitting inc time w/o inc hip pain. LTG Duration 12/28 strength Short Term Goal (STG) Pt will be indep w/HEP STG Duration 11/27 Retirement Goal (LTG) Pt will score at least 4+/5 on BLE MMT and at lest 2/5 on LPM to show improved stability to allow greater ease with activity LTG Duration 12/28 Assessment Summary Assessment Pt presents w/c/o L lat hip pain w/mild tearing noted of glute min and partial tear of glute med in MRI performed last fall w/o hx of incident. Pt has complicated hx including multiple mylenoma which makes her bones more fragile and will have to be gentle with treatment and may be complicating her pain. She also has hx of L ankle issue with present cyst potentially affecting her gait also. She has limited ROM in L hip that affects her ADLs along w/pain w/stairs. She also demonstrates dec balance. She would benefit from skilled PT to address her deficits but will be limited by her high deductible and copay. Physical Therapy Plan Frequency and Duration Frequency of Treatment 2x/Week Duration of treatment (weeks) 10 Plan of Care Start Date 10/27/24 Plan of Care End Date 01/05/25 Therapeutic Interventions Therapeutic Interventions Balance Training,Gait Training ,Home Exercise Program,Joint Mobilizations,Manual Therapy, Neuromuscular Re-education, Orthotic/Prosthetic Management ,Patient/Caregiver Education, Self-Care/Home Management,Soft Tissue Mobilization,Taping, Therapeutic Activities, Therapeutic Exercises Modalities Cold Pack/Ice Massage,Hot Packs Other Therapeutic Interventions very gentle joint mobilizations d/t multiple myeloma Next Visit Focus/Plan Next Note Type Treatment Note Next Visit Plan review HEP; gentle STM to hip and HS, grade 1 jt mobs to hip , stair training Plan of Care Dates Plan of Care Start Date 10/27/24 Plan of Care End Date 01/05/25 Electronically Signed by: Aditi Engel, PT 10/27/24 1080 If you are in agreement with this Plan of Care, please return a signed and dated copy. I have reviewed this Plan of Care and certify that the skilled therapy services above are required to meet the patient?s needs. Physician Signature Date Printed Name and Credentials Clinical Instructor Signature Printed Name and Credentials
--- NOTE | 2024-12-30 12:25 | PT.OPDS ---
Current Diagnoses Trochanteric bursitis, left hip (10/27/24) Visit Care Team Role Provider Type Percy Gagnon MD Family Provider Physician Primary Care Provider Specialty: Family Practice Address: [address] [place] [address], [phone] Email: [email or web address] Ivett Wharton MD Attending Provider Physician Referring Provider Specialty: Orthopedics Orthopedic Surgery Address: [address] [place] [address], [address] Email: [email or web address] Visit Number Visit Number 1 Pt cancelled last scheduled visit (only scheduled visit after eval) and when called to follow up said Patient said she is having issues with her and will call us when she is ready to schedule. Pt did not reschedule and has not been seen in 2 months. DC at this time.
== END 2024-11-26 08:35 | disposition home or self-care (01) ==
LOC: PHYS 14:25
PROVIDERS: Family Provider Family Medicine; PCP Family Medicine; Referring Provider Orthopaedic Surgery; Visit Provider Orthopaedic Surgery
DX: M70.62 Trochanteric bursitis, left hip (principal)
CPT/HCPCS: 97110; 97163

== ENCOUNTER → 2024-12-29 09:51 | Outpatient (CLI) | payer OTHER, SELFPAY | LOC: LAB 09:51 | PROVIDERS: Family Provider Family Medicine; PCP Family Medicine; Visit Provider Nurse Practitioner Family | DX: R30.0 Dysuria (principal) | CPT/HCPCS: 87077; 87086; 87186 ==

== ENCOUNTER → 2025-07-27 09:35 | Outpatient (CLI) | payer OTHER, SELFPAY | PROVIDERS: Family Provider Family Medicine; PCP Family Medicine; Visit Provider Nurse Practitioner Family | DX: R39.15 Urgency of urination (principal) | CPT/HCPCS: 87077; 87086; 87186 ==